=== PATIENT | male | born 1985 | race Caucasian/White ===

== ENCOUNTER 2021-12-08 13:02 | Emergency (ER) | payer BC, SELFPAY ==
[2021-12-08 13:09] VITALS: BP 136/84; PULSE 75; RESP 18; TEMP 36.6; O2SAT 95; BMI 22.1
[2021-12-08 13:13] VITALS: BP 136/84; PULSE 74; O2SAT 96
--- NOTE | 2021-12-08 13:14 | CT_ITS ---
WS: [id number] CT CHEST ANGIOGRAPHY WITH REFORMATS HISTORY: Short of breath. TECHNIQUE: Contiguous axial images are obtained through the chest during arterial injection of intrav enous contrast. Images are reconstructed to evaluate the pulmonary arteries. MIP imaging also reviewe d. All CT scans at [facility] use at least one of these dose optimization techniques: automat ed exposure control; mA and/or kV adjustment per patient size (includes targeted exams where dose is matched to clinical indication); or iterative reconstruction. CONTRAST: Omnipaque 350; 80 mL IV. DLP: 559.28 mGy.cm COMPARISON: None available. Filling defect segmental branch RIGHT lower lobe consistent with pulmonary emboli which branches into several segments. No additional emboli are identified. This is a short segment emboli. Normal size p ulmonary artery. No RIGHT heart strain. No pericardial effusion. Normal size aorta. Normal size heart . No pneumonia. No pulmonary infarct. No effusion or pneumothorax. No adenopathy. Mild gynecomastia. Small hiatal hernia. No osteoblastic or osteolytic bone disease. CT/CT angio chest PE protcl [id number] IMPRESSION: 1. Short segment segmental branch RIGHT lower lobe pulmonary embolism. 2. No pneumonia. No infarct. Notified Wilfrido Pichardo MD at 12/08/2021 2:29 PM.
--- NOTE | 2021-12-08 13:14 | XR_ITS ---
WS: [id number] XR chest 1V portable [id number] REASON FOR EXAM: cp FINDINGS: Heart and mediastinum are within normal limits. Calcified granulomatous disease is seen in both hemithoraces. No active pulmonary parenchymal or pleural disease is noted. Bony thorax is intact without significant focal abnormality. XR/XR chest 1V portable [id number] IMPRESSION: No acute chest abnormality.
--- NOTE | 2021-12-08 13:15 | ECG_ITS ---
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 Measurements Intervals [place] Rate: 70 P: 64 GA: 134 QRS: 53 QRSD: 86 T: 33 QT: 365 QTc: 396 Interpretive Statements SINUS RHYTHM ST ELEVATION, PROBABLY EARLY REPOLARIZATION [ST ELEVATION WITH NORMALLY INFLECTED T-WAVE] No previous ECG available for comparison Electronically Signed On 12-08-2021 20:06:47 CDT by Darshan Wilson M.D. [id number]
--- NOTE | 2021-12-08 13:16 | W.ED.ANXIETY ---
HPI - Anxiety General: Chief Complaint: Anxiety Stated Complaint: anxiety Time Seen by Provider: 12/08/21 13:09 History of Present Illness: 36-year-old presents due to chest pain palpitations. States this started approximately an hour ago. Does admit to previous history of cocaine use. Also reports previous history of PE and states he was previously on Xarelto but is no longer on it. States pain was achy and now is resolved. It did not radiate into the back. It was not exertional or pleuritic. Denies lower extremity pain or swelling. Denies any IV drug use and states that he normally snorts. Review of Systems Narrative: - CONSTITUTIONAL: Denies weight loss, fever and chills. - HEENT: Denies changes in vision and hearing. - RESPIRATORY: Denies SOB and cough. - CV: As above - GI: Denies abdominal pain, nausea, vomiting and diarrhea. - : Denies dysuria and urinary frequency. - MSK: Denies myalgia and joint pain. - SKIN: Denies rash and pruritus. - NEUROLOGICAL: Denies headache, weakness, numbness and syncope. - PSYCHIATRIC: Denies suicidal ideation Physical Exam Narrative: EXAM NARRATIVE: - GENERAL: Alert and oriented x 3. No acute distress. Well-nourished. - EYES: EOMI. Anicteric. - HENT: Atraumatic, no C-spine tenderness. Moist mucous membranes. No scleral icterus. No cervical lymphadenopathy. - LUNGS: Clear to auscultation bilaterally. No accessory muscle use. Equal lung sounds bilaterally. No respiratory distress. - CARDIOVASCULAR: Regular rate and rhythm. No murmur. No JVD. - ABDOMEN: Soft, non-tender and non-distended. Negative CVA tenderness bilaterally, no rebound or guarding, negative Elizabeth sign. No palpable masses. - EXTREMITIES: No edema. Non-tender. - SKIN: No rashes or lesions. Warm. - NEUROLOGIC: No meningismus or focal neurological deficits. CN II-XII grossly intact. - PSYCHIATRIC: Cooperative. Appropriate mood and affect. Course Vital Signs: Vital signs: Vital Signs Temperature 97.9 F 12/08/21 13:09 Pulse Rate 67 12/08/21 15:13 Respiratory Rate 15 12/08/21 15:13 Blood Pressure 134/84 12/08/21 15:13 Pulse Oximetry 100 12/08/21 15:13 MDM - Anxiety Medical Decision Making 36-year-old presents with chest pain. Also reports anxiety. States he has history of previous PE and used to be on Xarelto but is no longer on it. CT here is concerning for small PE. However there is no sign of heart strain. He is hemodynamically stable afebrile nontoxic-appearing. Saturating well on room air. Prescription for Xarelto provided. Otherwise EKG and troponin do not reveal any sign of acute ischemia or other acute abnormality and remainder of lab work is unremarkable. At this time I believe patient would be safe for discharge and outpatient follow-up. Return precautions provided. Plan was reviewed with the patient who expressed understanding. Questions answered. Patient will follow up with PCP. Patient discharged in stable condition. Lab Data : 12/08/21 13:50 12/08/21 13:50 Radiology Impressions Chest CTA 12/08/21 13:14 IMPRESSION: 1. Short segment segmental branch RIGHT lower lobe pulmonary embolism. 2. No pneumonia. No infarct. Notified Wilfrido Pichardo MD at 12/08/2021 2:29 PM. Chest X-Ray 12/08/21 13:14 IMPRESSION: No acute chest abnormality. Laboratory Results WBC 12.5 10^3/uL (4.0-10.0) H 12/08/21 13:50 RBC 4.71 10^6/uL (4.1-5.3) 12/08/21 13:50 Hgb 14.4 g/dL (11.7-16.6) 12/08/21 13:50 Hct 43.5 % (42.0-52.0) 12/08/21 13:50 MCV 92.4 fl (80-94) 12/08/21 13:50 MCH 30.6 pg (28.0-34.0) 12/08/21 13:50 MCHC 33.1 g/dL (30.0-36.0) 12/08/21 13:50 RDW 14.1 % (12.1-15.1) 12/08/21 13:50 Plt Count 290 10^3/cmm (130-400) 12/08/21 13:50 MPV 10.5 fL (7.4-10.4) H 12/08/21 13:50 Neut % (Auto) 79.6 % 12/08/21 13:50 Lymph % (Auto) 14.9 % 12/08/21 13:50 Spencer % (Auto) 4.5 % 12/08/21 13:50 Eos % (Auto) 0.3 % 12/08/21 13:50 Baso % (Auto) 0.2 % 12/08/21 13:50 Neut # (Auto) 9.90 10^3/uL (1.8-7.7) H 12/08/21 13:50 Lymph # (Auto) 1.9 10^3/uL (0.8-4.8) 12/08/21 13:50 Spencer # (Auto) 0.6 10^3/uL (0.2-0.9) 12/08/21 13:50 Eos # (Auto) 0.0 10^3/uL (0.0-0.8) 12/08/21 13:50 Baso # (Auto) 0.0 10^3/uL (0.0-0.1) 12/08/21 13:50 Nucleated RBC % (auto) 0 % 12/08/21 13:50 Nucleated RBCs # 0.0 /100WBC 12/08/21 13:50 Sodium 136 mmol/L (136-145) 12/08/21 13:50 Potassium 3.7 mmol/L (3.5-5.1) 12/08/21 13:50 Chloride 102 mmol/L (98-107) 12/08/21 13:50 Carbon Dioxide 24 mmol/L (22-29) 12/08/21 13:50 Anion Gap 13.7 (5-19) 12/08/21 13:50 BUN 11 mg/dL (6-20) 12/08/21 13:50 Creatinine 0.6 mg/dL (0.7-1.2) L 12/08/21 13:50 GFR Calculation 151.6 mL/min (90-130) H 12/08/21 13:50 Glucose 96 mg/dL (65-115) 12/08/21 13:50 Calculated Osmolality 281 mOsm/kg (285-295) L 12/08/21 13:50 Calcium 8.9 mg/dL (8.5-10.5) 12/08/21 13:50 Total Bilirubin 0.5 mg/dL (0.15-1.2) 12/08/21 13:50 AST 12 U/L (0-40) 12/08/21 13:50 ALT 14 U/L (0-41) 12/08/21 13:50 Alkaline Phosphatase 92 IU/L (40-130) 12/08/21 13:50 Troponin T Baseline 6 ng/L (0-15) 12/08/21 13:50 Troponin T 120 Minute 6.00 ng/L (0-15) 12/08/21 16:05 NT-Pro-B Natriuret Pep 9 pg/mL (0-125) 12/08/21 13:50 Total Protein 6.9 g/dL (6.6-8.7) 12/08/21 13:50 Albumin 4.3 g/dL (3.5-5.2) 12/08/21 13:50 Globulin 2.6 g/dL (1.3-4.6) 12/08/21 13:50 Lipase 54 U/L (13-60) 12/08/21 13:50 TSH 0.67 uIU/mL (0.27-4.20) 12/08/21 13:50 Free T4 1.11 ng/dL (0.82-1.77) 12/08/21 13:50 EKG Data EKG 1: Interpretation: Chest CTA 12/08/21 13:14 IMPRESSION: 1. Short segment segmental branch RIGHT lower lobe pulmonary embolism. 2. No pneumonia. No infarct. Notified Wilfrido Pichardo MD at 12/08/2021 2:29 PM. Chest X-Ray 12/08/21 13:14 IMPRESSION: No acute chest abnormality. Other EKG comments: Chest CTA 12/08/21 13:14 IMPRESSION: 1. Short segment segmental branch RIGHT lower lobe pulmonary embolism. 2. No pneumonia. No infarct. Notified Wilfrido Pichardo MD at 12/08/2021 2:29 PM. Chest X-Ray 12/08/21 13:14 IMPRESSION: No acute chest abnormality. Sinus rhythm, rate of 70, benign early repull but no sign of acute ischemia or acute abnormality. Discharge Plan Discharge Condition: Stable Prescriptions: No Action citalopram 40 mg tablet 40 mg PO DAILY 0RF clonazepam 0.5 mg tablet 0.5 mg PO BID PRN (Reason: Anxiety) 0RF Coding Level of Care Code ED Guest Services Manager for Zoey Mast
[2021-12-08] MEDS: iohexol 350 mg/mL 100 mL Btl IV (13:38)
[2021-12-08 14:07] LABS: Basophils % 0.2 %; Eosinophils % 0.3 %; Hematocrit 43.5 % (42.0-52.0); Hemoglobin 14.4 g/dL (11.7-16.6); Lymphocytes # 1.9 10^3/uL (0.8-4.8); Lymphocytes % 14.9 %; Mean Corpuscular HGB Conc 33.1 g/dL (30.0-36.0); Mean Corpuscular Hemoglobin 30.6 pg (28.0-34.0); Mean Corpuscular Volume 92.4 fl (80-94); Mean Platelet Volume 10.5 fL (7.4-10.4); Monocytes # 0.6 10^3/uL (0.2-0.9); Monocytes % 4.5 %; Neutrophils % 79.6 %; Nucleated Red Blood Cells % 0 %; Platelet Count 290 10^3/cmm (130-400); Red Blood Count 4.71 10^6/uL (4.1-5.3); Red Cell Distribution Width 14.1 % (12.1-15.1); White Blood Count 12.5 10^3/uL (4.0-10.0)
[2021-12-08 14:40] LABS: Troponin(5th) Baseline 6 ng/L (0-15)
[2021-12-08 14:46] LABS: Alanine Aminotransferase 14 U/L (0-41); Albumin Level 4.3 g/dL (3.5-5.2); Alkaline Phosphatase 92 IU/L (40-130); Anion Gap 13.7 (5-19); Aspartate Amino Transferase 12 U/L (0-40); Blood Urea Nitrogen 11 mg/dL (6-20); Calcium 8.9 mg/dL (8.5-10.5); Carbon Dioxide 24 mmol/L (22-29); Chloride 102 mmol/L (98-107); Free T4 Free Thyroxine 1.11 ng/dL (0.82-1.77); Globulin 2.6 g/dL (1.3-4.6); Glomerular Filtration Rate 151.6 mL/min (90-130); Glucose 96 mg/dL (65-115); Lipase 54 U/L (13-60); NT Pro B Type Natriuretic Pept 9 pg/mL (0-125); Osmolality Calculated 281 mOsm/kg (285-295); Potassium 3.7 mmol/L (3.5-5.1); Sodium 136 mmol/L (136-145); Thyroid Stimulating Hormone 0.67 uIU/mL (0.27-4.20); Total Bilirubin 0.5 mg/dL (0.15-1.2); Total Protein 6.9 g/dL (6.6-8.7)
[2021-12-08 15:13] VITALS: BP 134/84; PULSE 67; RESP 15; O2SAT 100
--- NOTE | 2021-12-08 15:15 | ECG_ITS ---
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 Measurements Intervals [place] Rate: 66 P: 58 AK: 144 QRS: 46 QRSD: 88 T: 21 QT: 372 QTc: 392 Interpretive Statements SINUS RHYTHM ST ELEVATION, PROBABLY EARLY REPOLARIZATION [ST ELEVATION WITH NORMALLY INFLECTED T-WAVE] Compared to ECG 12/08/2021 13:21:40 No significant changes Electronically Signed On 12-08-2021 20:15:22 CDT by Darshan Wilson M.D. [id number]
[2021-12-08 16:52] LABS: Amphetamines Screen Urine Negative (Negative); Barbiturates Screen Urine Negative (Negative); Benzodiazepines Screen Urine Negative (Negative); Cocaine Screen Urine Negative (Negative); Opiate Screen Urine Negative (Negative); PCP Screen Urine Negative (Negative); THC Screen Urine Positive (Negative)
[2021-12-08 16:52] LABS: Troponin 5 2HR Delta 0 ABS# (0-10)
== END 2021-12-08 17:33 | disposition home or self-care (01) ==
PROVIDERS: Emergency Provider Emergency Medicine
DX: F41.9 Anxiety disorder, unspecified (principal)
CPT/HCPCS: 36415; 71045; 71275; 80053; 80306; 83690; 83880; 84439; 84443; 84484; 85025; 93005; 99284; Q9967